=== PATIENT | female | born 1975 | race Caucasian/White ===

== ENCOUNTER 2018-03-19 15:58 | Emergency (ER) | payer SELFPAY ==
[2018-03-19] MEDS ORDERED: AMOXicillin 250 MG CAP ONE (17:11)
[2018-03-19] MEDS ORDERED: Benzonatate 100 MG CAP ONE (17:11)
--- NOTE | 2018-03-19 18:51 | RAD ---
CHEST TWO VIEWS: 03/19/18 The lungs are mildly hyperexpanded with slight flattening of the diaphragm. No lobar consolidations o r effusions were seen. There is probably some minor amount of left apical scarring. The heart is norm al in size. No congestive change was seen. The mediastinum was unremarkable. IMPRESSION: Mildly hyperexpanded lungs but no acute findings otherwise. POS: HOME
== END 2018-03-19 17:21 | disposition home or self-care (01) ==
LOC: BURERS 15:58
DX: J20.9 Acute bronchitis, unspecified (principal); F31.9 Bipolar disorder, unspecified; F17.210 Nicotine dependence, cigarettes, uncomplicated
CPT/HCPCS: 71046; 87081; 87430; 87804

== ENCOUNTER 2018-03-28 04:52 | Emergency (ER) | payer SELFPAY ==
[2018-03-28] MEDS ORDERED: HYDROcodone/Acetaminophen 5/325 mg Tablet ONE (05:23)
[2018-03-28] MEDS ORDERED: Ketorolac Tromethamine 30 MG/ML VIAL ONE (05:23)
[2018-03-28 05:31] LABS: Bilirubin Negative (Negative); Blood, Urine Large (Negative); Clarity Cloudy (Clear); Glucose, Urine (Dipstick) Negative (Negative); Leukocyte Moderate (Negative); Nitrite Positive (Negative); Protein, Urine (Dipstick) > or equal to 300 mg/dL (Neg-Trace); Specific Gravity, Urine 1.015 (1.005-1.030); Urobilinogen 0.2 mg/dL (0.2-1.0); pH, Urine 8.5 (5.0-9.0)
[2018-03-28 05:38] LABS: Bacteria/HPF 4+ HPF (None Seen); RBC/HPF 21-50 HPF (0-3); Squamous Epithelial 0-3 HPF (0-3); Transitional Epithelial 0-3 HPF (0-3); WBC/HPF 21-50 HPF (0-3)
[2018-03-28 05:39] LABS: Other Microscopic Description FEW CLUE CELLS
[2018-03-28] MEDS ORDERED: Phenazopyridine HCl 97.5 MG TABLET ONE (05:57)
[2018-03-28] MEDS ORDERED: cefTRIAXone\\ROCEPHIN 2 GM VIAL ONE (05:57)
== END 2018-03-28 06:52 | disposition home or self-care (01) ==
LOC: BURERS 04:52
DX: N12 Tubulo-interstitial nephritis, not specified as acute or chronic (principal); F31.9 Bipolar disorder, unspecified; F17.210 Nicotine dependence, cigarettes, uncomplicated
CPT/HCPCS: 81003; 81015; 87077; 87086; 87186; 96361; 96372; 96374; J0696; J1885

== ENCOUNTER 2018-03-31 01:38 | Emergency (ER) | payer SELFPAY ==
[2018-03-31 02:12] LABS: Clarity Hazy (Clear); Leukocyte Unable to Interpret (Negative); Nitrite Unable to Interpret (Negative); Protein, Urine (Dipstick) Unable to Interpret mg/dL (Neg-Trace); Specific Gravity, Urine 1.014 (1.002-1.036)
[2018-03-31 02:13] LABS: Bilirubin Unable to Interpret (Negative); Blood, Urine Unable to Interpret (Negative); Glucose, Urine (Dipstick) Unable to Interpret mg/dL (Negative); Urobilinogen UNABLE TO INTERPRET mg/dL (0.2-1.0)
[2018-03-31 02:19] LABS: Bacteria/HPF 1+ HPF (None Seen); RBC/HPF 0-3 HPF (0-3); Squamous Epithelial 0-3 HPF (0-3); Transitional Epithelial 0-3 HPF (0-3)
[2018-03-31 02:20] LABS: Crystals/HPF 1+ AMORPH URATES HPF (Negative)
[2018-03-31] MEDS ORDERED: Ondansetron ODT 4 MG TAB ONE (02:34)
[2018-03-31] MEDS ORDERED: Ibuprofen 800 MG TAB ONE (02:34)
--- NOTE | 2018-03-31 10:54 | CT ---
PRELIMINARY REPORT/[facility]/EMERGENCY AFTER HOURS PROCEDURE: EXAM: CT Abdomen and Pelvis Without Intravenous Contrast EXAM DATE/TIME: Exam ordered 03/31/2018 2:37 AM CLINICAL HISTORY: 42 years old, female; Pain; Other: Bilateral flank pain; Patient HX: HX tubaligation TECHNIQUE: Axial computed tomography images of the abdomen and pelvis without intravenous contrast. All CT scans at this facility use at least one of these dose optimization techniques: automated exposure control; mA and/or kV adjustment per patient size (includes targeted exams where dose is matched to clinical indication); or iterative reconstruction. Coronal reformatted images were created and reviewed. COMPARISON: No relevant prior studies available. FINDINGS: Lung bases: Unremarkable. No mass. No consolidation. ABDOMEN: Liver: Unremarkable. Gallbladder and bile ducts: Gallbladder sludge. No cholecystitis or biliary ductal dilatation. Pancreas: Unremarkable. No ductal dilation. Spleen: Unremarkable. No splenomegaly. Adrenals: Unremarkable. No mass. Kidneys and ureters: Unremarkable. No obstructing stones. No hydronephrosis. Stomach and bowel: No bowel wall thickening or intestinal obstruction. PELVIS: Appendix: Normal appendix. Bladder: Unremarkable. No stones. Reproductive: 9 mm follicle versus collapsed cyst remnant in the left ovary. ABDOMEN and PELVIS: Intraperitoneal space: Physiologic amount of free fluid in the pelvis. No free air. Bones/joints: No acute fracture. No dislocation. Soft tissues: Unremarkable. Vasculature: Unremarkable. No abdominal aortic aneurysm. Lymph nodes: Unremarkable. No enlarged lymph nodes. IMPRESSION: 9 mm follicle versus collapsed cyst remnant in the left ovary. Thank you for allowing us to participate in the care of your patient. Dictated and Authenticated by: Marco Antonio Goldstein MD 03/31/2018 3:31 AM Central Time ([place] & [place]) FINAL REPORT CT ABDOMEN AND PELVIS WITHOUT CONTRAST: Date: 03/31/[address] was done using a renal stone protocol for evaluation of flank pain in a patient with a recent UTI. Axial slices were acquired, then coronal reconstructions were done. FINDINGS: The lung bases are clear. The liver, spleen, pancreas, kidneys, adrenal glands, and abdominal aorta showed no acute findings wi thin the limitations of the noncontrast study. The right kidney is now rotated, but there is no sign of stones or hydronephrosis in either. The dependent portions of the patient's gallbladder seem rathe r opaque, though no calcifications were seen. Ultrasound would be more accurate at depicting if there was sludge here or not. Hepatic size is upper normal, but internally no space-occupying disease was seen. CT of the pelvis showed no pelvic masses, fluid collections of concern, or inflammatory changes. Ther e may be a trace of fluid in the cul-de-sac, which is physiologic. There is a question of a small col lapsed cyst in the left ovary, but this is also indefinite without contrast. Ultrasound would be bett er at assessing this, and its importance is probably low. IMPRESSION: 1. No significant urinary tract findings. 2. Question of sludge in the gallbladder. Ultrasound would be more accurate. 3. Question of small subcentimeter adnexal cyst, probably not important. Findings in basic agreement with preliminary reading by Karissa. POS: HOME
== END 2018-03-31 02:43 | disposition home or self-care (01) ==
LOC: BURERS 01:38
DX: N10 Acute pyelonephritis (principal); R11.2 Nausea with vomiting, unspecified; F31.9 Bipolar disorder, unspecified; F17.210 Nicotine dependence, cigarettes, uncomplicated; Z79.899 Other long term (current) drug therapy
CPT/HCPCS: 74176; 81003; 81015; 87086; Q0162

== ENCOUNTER 2019-09-22 22:57 | Emergency (ER) | payer MEDICARE, OTHER ==
[2019-09-23] MEDS ORDERED: Azithromycin 250 MG TAB ONE (00:32)
--- NOTE | 2019-09-23 07:21 | RAD ---
PORTABLE CHEST: Date: 09/22/2019 An AP portable film at 2343 hours is compared with a 03/19/2018 study. The heart is normal in size and the lungs are clear. No infiltrate, effusion, or concerning parenchym al change was found. The trachea is midline and the mediastinum appears normal. IMPRESSION: Stable exam showing no acute findings. POS: HOME
== END 2019-09-23 00:40 | disposition home or self-care (01) ==
LOC: BURERS 22:57
DX: J18.9 Pneumonia, unspecified organism (principal); F31.9 Bipolar disorder, unspecified; F17.210 Nicotine dependence, cigarettes, uncomplicated
CPT/HCPCS: 71045; 87804; U0001

== ENCOUNTER 2020-04-08 08:40 | Emergency (ER) | payer OTHER, SELFPAY ==
--- NOTE | 2020-04-08 14:17 | RAD ---
PORTABLE CHEST: 04/08/20 An AP portable film at 0917 is compared with a 09/22/19 study. The heart is normal in size and the lungs are clear. No infiltrate or effusion was seen. There is no vascular congestion or edema. IMPRESSION: No acute thoracic finding. POS: HOME
[2020-04-08 17:34] LABS: SARS-CoV-2 MS2 Positive; SARS-CoV-2 N Gene Negative; SARS-CoV-2 S Gene Negative; SARS-CoV-2 by NAA Not Detected (NotDetected); SARS-CoV-2 orf1ab Negative
== END 2020-04-08 09:30 | disposition home or self-care (01) ==
LOC: BURERS 08:40
DX: B34.9 Viral infection, unspecified (principal); J45.909 Unspecified asthma, uncomplicated; F17.210 Nicotine dependence, cigarettes, uncomplicated; Z20.828 Contact with and (suspected) exposure to other viral communicable diseases
CPT/HCPCS: 71045; 87635; U0003

== ENCOUNTER 2020-09-09 22:10 | Emergency (ER) | payer SELFPAY ==
[2020-09-09] MEDS ORDERED: Ondansetron PF 4 MG/2 ML Vial ONE (22:35)
[2020-09-09] MEDS ORDERED: Ketorolac Tromethamine 30 MG/ML VIAL ONE (22:35)
[2020-09-09 22:42] LABS: #Basophils 0.1 thou/uL (0.0-0.2); #Eosinphils 0.1 thou/uL (0.0-0.7); #Lymphocytes 1.9 thou/uL (1.20-3.40); #Monocytes 0.9 thou/uL (0.11-0.59); #Neutrophils 12.3 thou/uL (1.40-6.50); %Basophils 0.8 % (0.0-1.0); %Eosinophils 0.3 % (0.0-10.0); %Lymphocytes 12.5 % (21.0-51.0); %Monocytes 5.7 % (0.0-10.0); %Neutrophils 80.7 % (42.0-75.0); Hemoglobin 14.7 g/dL (12.0-16.0); Mean Corpuscular HGB CONC 33.8 g/dL (32.0-36.0); Mean Corpuscular Hemoglobin 32.1 pg (27.0-31.0); Mean Corpuscular Volume 95.1 fL (78.0-98.0); Mean Platelet Volume 9.5 fL (7.4-10.4); Platelet Count 173 thou/uL (130-400); RBC Distribution Width 11.8 % (11.5-14.5); Red Blood Cell (RBC) Count 4.56 mill/uL (4.20-5.40); White Blood Cell (WBC) Count 15.3 thou/uL (4.8-10.8)
[2020-09-09 22:47] LABS: Bilirubin Negative (Negative); Blood, Urine Moderate (Negative); Clarity Cloudy (Clear); Glucose, Urine (Dipstick) Negative (Negative); Ketone, Urine Negative (Negative); Leukocyte Small (Negative); Nitrite Positive (Negative); Protein, Urine (Dipstick) 100 mg/dL (Neg-Trace)
[2020-09-09 22:55] LABS: ALT (SGPT) 12 U/L (8-55); AST (SGOT) 11 U/L (5-34); Albumin 3.8 g/dL (3.5-5.0); Alkaline Phosphatase 80 U/L (40-110); Anion Gap 14 mmol/L (10-20); BUN (Urea Nitrogen) 15 mg/dL (7.0-18.7); Bilirubin, Total 0.3 mg/dL (0.2-1.2); Calc. Creatinine Clearance 0 mL/min (70-130); Calcium 8.9 mg/dL (7.8-10.44); Carbon Dioxide 23 mmol/L (22-29); Chloride 105 mmol/L (98-107); Globulin 2.9 g/dL (2.4-3.5); Glucose 109 mg/dL (70-105); Potassium 4.1 mmol/L (3.5-5.1); Protein, Total 6.7 g/dL (6.0-8.3); Sodium 138 mmol/L (136-145)
[2020-09-09 22:57] LABS: Bacteria/HPF 3+ HPF (None Seen)
[2020-09-09 22:58] LABS: Squamous Epithelial 0-3 HPF (0-3)
[2020-09-09 23:02] LABS: WBC/HPF 21-50 HPF (0-3)
[2020-09-09 23:03] LABS: Transitional Epithelial 0-3 HPF (None Seen)
[2020-09-09 23:04] LABS: Oval Fat Bodies/HPF 1+ HPF (None Seen); Pregnancy Test - Urine (BHCG) Negative (Negative)
[2020-09-09 23:05] LABS: Amphetamine Not Detected (NotDetected); Barbiturates Screen Not Detected (NotDetected); Benzodiazepine Screen Not Detected (NotDetected); Cocaine Metabolite Screen Not Detected (NotDetected); Medtox Control Line Valid? VALID (VALID); Methadone Not Detected (NotDetected); Methamphetamine Not Detected (NotDetected); Opiate Screen Not Detected (NotDetected); Oxycodone Screen Not Detected (NotDetected); Phencyclidine (PCP) Not Detected (NotDetected); Pregu Control Background? CLEAR/WHITE (CLR/WHITE); Pregu Control Bar Appear? YES (CONTROL BAR); THC/Cannabinoid Screen Detected (NotDetected); Tricyclic Screen Not Detected (NotDetected)
[2020-09-10] MEDS ORDERED: Sulfameth/Trimethoprim DS 800-160mg TAB ONE (00:07)
== END 2020-09-10 00:13 | disposition home or self-care (01) ==
LOC: BURERS 22:10
DX: N10 Acute pyelonephritis (principal); N28.1 Cyst of kidney, acquired; F17.210 Nicotine dependence, cigarettes, uncomplicated
CPT/HCPCS: 74177; 80053; 80306; 81003; 81015; 81025; 85025; 96374; 96375; J1885; J2405

== ENCOUNTER 2022-03-18 18:42 | Emergency (ER) | payer SELFPAY ==
[2022-03-18 19:32] LABS: Bilirubin Small (Negative); Blood, Urine Negative (Negative); Clarity Slightly Cloudy (Clear); Glucose, Urine (Dipstick) Negative (Negative); Ketone, Urine Trace mg/dL (Negative); Leukocyte Small (Negative); Nitrite Negative (Negative); Protein, Urine (Dipstick) 30 mg/dL (Neg-Trace); pH, Urine 6.5 (5.0-9.0)
[2022-03-18 19:41] LABS: RBC/HPF None Seen HPF (0-3)
[2022-03-18 19:42] LABS: Bacteria/HPF 1+ HPF (None Seen); Mucous/LPF 2+ LPF (<2+)
[2022-03-18] MEDS ORDERED: Ciprofloxacin 500 MG TAB ONE (20:05)
[2022-03-18] MEDS ORDERED: Ibuprofen 200 MG TAB ONE (20:05)
== END 2022-03-18 20:15 | disposition home or self-care (01) ==
LOC: BURERS 18:42
DX: U07.1 COVID-19 (principal); N30.00 Acute cystitis without hematuria; F17.210 Nicotine dependence, cigarettes, uncomplicated
CPT/HCPCS: 81003; 81015; 87086; 87804; 99283; U0003; U0005

== ENCOUNTER 2024-04-19 02:48 | Emergency (ER) | payer BC, SELFPAY ==
[2024-04-19] MEDS ORDERED: Bupivacaine 0.5% 10 ML VIAL ONE (03:14)
[2024-04-19] MEDS ORDERED: Clindamycin 150 MG CAP ONE (03:22)
== END 2024-04-19 03:30 | disposition home or self-care (01) ==
LOC: BURERS 02:48
DX: K04.7 Periapical abscess without sinus (principal)
CPT/HCPCS: 64400; J3490